=== PATIENT | female | born 1960 | race Caucasian/White ===

== ENCOUNTER 2020-12-04 06:25 | Observation (INO) ==
[~2020-12-04 06:25] MED LIST: 0.9 % Sodium Chloride 500 ML IVC SCH
[2020-12-04] MEDS ORDERED: ceFAZolin 1,000 MG in Water for inj. (sterile) 10 ML IVP ONE (06:37)
[2020-12-04] MEDS ORDERED: Heparin 1,000 UNITS/500 mL 500 ML ONE (07:10)
[2020-12-04] MEDS ORDERED: *HR* Succinylcholine 200 MG/10 ML VIAL IVP ONE (07:15)
[2020-12-04] MEDS ORDERED: Lidocaine HCL 4 ML Topical Solution (Laryng-O-Jet Kit Sterile Pak) TP ONE (07:15)
[2020-12-04] MEDS ORDERED: Lidocaine -MPF 2% 2 ML VIAL ONE (07:15)
[2020-12-04] MEDS ORDERED: *HR* Propofol 200 MG/20 ML VIAL IVP ONE (07:15)
[2020-12-04] MEDS ORDERED: Ondansetron 4 MG/2 ML VIAL ONE (07:15)
[2020-12-04] MEDS ORDERED: *HR* FentaNYL (PF) 100 MCG/2 ML VIAL ONE (07:15)
[2020-12-04] MEDS ORDERED: *HR* Rocuronium Bromide 50 MG/5 ML VIAL ONE (07:15)
[2020-12-04] MEDS ORDERED: Dexamethasone 4 MG/ML VIAL ONE (07:15)
[2020-12-04] MEDS ORDERED: *HR* FentaNYL (PF) 100 MCG/2 ML VIAL IVP PRN (08:00)
[2020-12-04] MEDS ORDERED: Ondansetron 4 MG/2 ML VIAL IVP PRN ×2 (08:00→09:57)
[2020-12-04] MEDS ORDERED: Naloxone 0.4 MG/ML INJ IVP PRN (09:57)
[2020-12-04] MEDS ORDERED: *HR* HYDROcodone/Acet 5/325 mg TABLET PO PRN (09:57)
[2020-12-04] MEDS ORDERED: Acetaminophen 325 MG TABLET PO PRN (09:57)
[2020-12-04] MEDS: carvediloL 6.25 MG TABLET PO SCH ×2 (10:43→16:23)
[2020-12-04] MEDS: calcitrioL 0.25 MCG CAPSULE PO SCH (10:44)
[2020-12-04] MEDS: Potassium Citrate 10 MEQ TABLET.ER PO SCH ×2 (10:44→16:22)
[2020-12-04] MEDS: Mirabegron [Myrbetriq] 50 MG Tab.Er.24h PO SCH (10:46)
[2020-12-04] MEDS: Insulin LISPRO 300 UNITS/3 ML VIAL SUBQ SCH ×2 (12:40→16:23)
[2020-12-04] MEDS: cefTAZidime 1,000 MG in Water for inj. (sterile) 10 ML IVP SCH (18:09)
[2020-12-05 05:38] LABS: Basophils % 0.3 %; Eosinophils % 0.2 %; Hematocrit 34.4 % (35.3-44.9); Immature Granulocytes % 1.8 % (0-4); Lymphocytes # 1.7 K/mcL (0.6-4.6); Lymphocytes % 16.7 %; Mean Corpuscular Hemoglobin 29.2 pg (28.0-33.3); Mean Corpuscular Volume 91.2 fL (83.0-100.0); Mean Platelet Volume 9.7 fL (9.4-12.4); Monocytes # 0.8 K/mcL (0.0-1.3); Monocytes % 8.1 %; Neutrophils # 7.5 K/mcL (1.6-8.9); Nucleated Red Blood Cells 0.2 /100 WBC (0); Platelet Count 219 K/mcL (140-400); Red Blood Count 3.77 M/mcL (3.82-4.97); Red Cell Distribution Width 14.2 % (11.5-14.5); Segmented Neutrophils % 72.9 %; White Blood Count 10.3 K/mcL (4.3-11.1)
[2020-12-05] MEDS: cefTAZidime 1,000 MG in Water for inj. (sterile) 10 ML IVP SCH (05:51)
[2020-12-05] MEDS: Potassium Citrate 10 MEQ TABLET.ER PO SCH (09:01)
[2020-12-05] MEDS: carvediloL 6.25 MG TABLET PO SCH (09:01)
[2020-12-05] MEDS: Insulin LISPRO 300 UNITS/3 ML VIAL SUBQ SCH (09:02)
[2020-12-05] MEDS: Mirabegron [Myrbetriq] 50 MG Tab.Er.24h PO SCH (09:08)
[2020-12-05] MEDS: calcitrioL 0.25 MCG CAPSULE PO SCH (09:09)
[2020-12-05 11:23] VITALS: BP 127/82
[2020-12-08] MEDS ORDERED: Dulaglutide [Trulicity] 1.5 MG/0.5 ML Pen.Injctr SQ SCH (08:55)
== END 2020-12-05 14:16 | disposition home or self-care (01) ==
LOC: 3ANU 06:25 → SAMDAY 06:25 → 3ANU 09:44
PROVIDERS: ADMIT Surgery; ATTEND Surgery